=== PATIENT | female | born 1975 ===

== ENCOUNTER 2022-04-30 17:22 | Inpatient (IN) | payer MEDICARE, MEDICAID ==
[2022-05-01 00:42] LABS: Glucose,Whole Blood 139 mg/dL (70-110)
[2022-05-01] MEDS ORDERED: MAG HYDROX/AL HYDROX/SIMETH 30 ML CUP PO PRN (04:00)
[2022-05-01] MEDS ORDERED: ACETAMINOPHEN TAB 325 MG TAB PO PRN (04:00)
[2022-05-01 06:49] VITALS: TEMP 97.6
[2022-05-01 07:55] LABS: Glucose,Whole Blood 106 mg/dL (70-110)
[2022-05-01] MEDS ORDERED: DESVENLAFAXINE SUCCINATE 50 MG TAB.ER.24H PO SCH (09:00)
[2022-05-01] MEDS ORDERED: LINAGLIPTIN 5 MG TABLET PO SCH (09:00)
[2022-05-01] MEDS ORDERED: ASPIRIN 325 MG TAB PO SCH (09:00)
[2022-05-01] MEDS ORDERED: METOPROLOL SUCCINATE (ER) 25 MG TAB.ER.24H PO SCH (09:00)
[2022-05-01] MEDS ORDERED: NON FORMULARY DRUG (Armodafinil [Armodafinil] 250 MG Tablet) PO SCH (09:00)
[2022-05-01] MEDS ORDERED: MAGNESIUM HYDROXIDE 2,400 MG/10 ML CUP PO PRN (09:00)
[2022-05-01] MEDS ORDERED: busPIRone HCl 5 MG TAB PO SCH (09:00)
[2022-05-01] MEDS ORDERED: methocarbamoL 750 MG TAB PO PRN (09:00)
[2022-05-01] MEDS ORDERED: NICOTINE 14MG/24HR PATCH TRANSDERM SCH (09:00)
[2022-05-01] MEDS ORDERED: OXYBUTYNIN 10 MG TAB.ER.24 PO SCH (09:00)
[2022-05-01] MEDS ORDERED: lisinopriL 10 MG TAB PO SCH (09:00)
[2022-05-01] MEDS ORDERED: CLOPIDOGREL 75 MG TAB PO SCH (09:00)
[2022-05-01] MEDS: GABAPENTIN 300 MG CAP PO SCH ×2 (09:15→15:12)
[2022-05-01] MEDS: DOCUSATE 100 MG CAP PO SCH ×2 (09:15→19:57)
[2022-05-01] MEDS: metFORMIN 500 MG TAB PO SCH ×2 (09:15→19:56)
[2022-05-01] MEDS: HYDROcodone/APAP 10-325MG 1 EACH TAB PO SCH ×2 (09:18→20:00)
--- NOTE | 2022-05-01 09:50 | P.HP ---
Psychiatric H&P - . H&P Date: 05/01/22 History & Physical: IDENTIFYING DATA: The patient is a 46-year-old to focus female transferred from [facility] with a history of suicidal ideation HISTORY OF PRESENT ILLNESS: I reviewed the medical record and interviewed the patient. According to the information provided by Tasha Ham she presented initially with complaints of chest pain, vomiting and light headedness. During the medical evaluation she reported that her mother "kicked her out of the house a few days ago" and she had been off her medications since that time. The rn social services's assessment reported that during this time she lives with an ex- boyfriend with whom she had a past no contact order. She complained that she feels suicidal but was unable to articulate a plan. She stated that her mother "kicked me out of the house ... She slammed the door and told me to get out" last week because she had contact with her boyfriend. Her mother told her that she can speak with her boyfriend telephone but she does not want her to have contact with them otherwise. She alleged that she has a pack to order with the boyfriend. She lived with her boyfriend for "3 or 4 days" and during this time she did not have either her medical or psychiatric medications. She began to "feel dehydrated" and her boyfriend took her to the urgent care who in turn referred her to the emergency room. She talked about her provider obtaining a "DNA test" and starting her on Seroquel and Pristiq after this test. She acknowledged that she told the emergency room physician that she was having suicidal thoughts. Her primary focus during our interview was subjective anxiety and she requested, several times" "something" for anxiety. He requested that we discontinue BuSpar because she is taking the medication in the past and it "does not work." She also described subjective feelings of depression but gave ambiguous responses to questions about depressive symptoms such as anhedonia, anergy, guilt etc. She did not describe anxiety suggestive of panic attacks. She doesn't describe obsessions or compulsions. She denied experiencing auditory, visual or olfactory hallucinations, ideas reference, thought insertion, thought broadcasting or thought control. PAST PSYCHIATRIC HISTORY: She responded to the positive that she has had prior psychiatric hospitalizations but was unable to provide details. According to the information provided by the rn social services from Tasha Ham she has been admitted to [facility] at least 5 other psychiatric hospitals. Apparently all the admissions were the result of a suicide attempt by overdose of her medications. She receives mental health servides through [facility] with Dr. Mariee and her ed case manager is Maggie. 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 Her home medications include armodafinil 250 mg daily, aspirin 325 mg daily, clopidogrell 75 mg daily, Emgality 120 mg monthly, gabapentin 600 mg 3 times a day, Januvia 100 mg daily, Lipitor 40 mg daily, lisinopril 10 mg daily, metformin 1000mg twice a day, methocarbamol 750 mg 3 times a day when necessary, methylphenidate 5 mg 3 times a day, metoprolol 25 mg daily, morphine 30 mg every 12 hours, [place] 10 g-325 mg twice a day when necessary, oxybutynin 10 mg daily, ranolazine 500 mg twice a day, sulcralfate 1 g twice a day, Ventolin inhaler and Zofran 8 mg every 8 when necessary ALLERGIES: Lamictal, Tegretol SUBSTANCE USE HISTORY: She is smokes marijuana she denied a history of alcohol or other substance use. FAMILY PSYCHIATRIC/SUBSTANCE USE HISTORY: According to record there is no history of psychiatric or substance use issues. LEGAL HISTORY: None SOCIAL HISTORY: She is unemployed and receives Social Security disability. She uses lives with her mother. MENTAL STATUS EXAM: She presented as disheveled 46-year-old female who was minimally cooperative. She did not make eye contact but appeared to attend to the interview. She had no distinguishing features or prominent physical abnormalities. She had a flat facial expression. She is alert and oriented to person, place and time. She had psychomotor retardation. He will keep gait was slow and unsteady. Her speech was spontaneous with decreased rate, rhythm and volume. Affect was flat. She expresses wishes and suicidal ideation but denied homicidal ideation. She expresses feelings of hopelessness and helplessness. She ruminated about her medications and complains of subjective anxiety. She did not express ideas reference, paranoid ideation or delusions. Her thinking was concrete but her associations were coherent, logical and goal directed. She denied hallucinations did not appear to responding to internal stimuli. Global impression of intellect is average. She is aware of illness and need for treatment. STRENGTHS: Supportive family, strong supportive services through [facility], stable income, stable housing WEAKNESSES: Severe and multiple medical problems IMPRESSION: She is a 46-year-old female with multiple medical problems who presented to the unit on transfer from [facility]. She initially presented to the emergency room with complaints of chest pain, nausea and vomiting but during today's suspended express suicidal ideation. She is chronically and persistently mentally ill and receives services through [facility]. The change in her mental status and the suicidal ideation appears related family and social issues. She should be treated inpatient basis with combination of psychopharmacology and multimodal therapy. PRINCIPLE DIAGNOSIS: Suicidal ideation, bipolar disorder most recent episode depressed without psychotic features, narcolepsy, hemiplegia and hemiparesis secondary nontraumatic intracerebral hemorrhage affecting her left nondominant side, monoplegia (following stroke affecting left nondominant side RECOMMENDATION: Admitted to the psychiatric unit. Voluntary admission. Consult medicine initial physical exam and medical history. quarry worker to complete initial psychosocial assessment and coordinate discharge Continnue Pristiq 100 mg daily, armodafinil 250 mg daily and Seroquel 100 mg at bedtime. Ativan 1 mg by mouth every 6 hours when necessary for anxiety. Continue other outpatient medications as recommended by medicine product safety consultant. Encourage participation in therapeutic groups and activities. Evaluate clinical status response to treatment daily basis. Allergies Allergy/AdvReac Type Severity Reaction Status Date / Time carbamazepine [From Tegretol] Allergy Unknown Unverified 04/30/22 17:35 lamotrigine [From Lamictal] Allergy Unknown Unverified 04/30/22 17:35 latex Allergy Unknown Unverified 04/30/22 17:35 Vital Signs Temp 97.6 F 05/01/22 06:49 Pulse 60 05/01/22 06:49 Resp 20 05/01/22 00:43 BP 96/54 05/01/22 06:49 Pulse Ox FiO2 Intake & Output 04/30/22 05/01/22 05/01/22 18:59 06:59 18:59 Weight 73 kg 73 kg Laboratory Last Values POC Glucose (mg/dL) 106 mg/dL (70-110) 05/01/22 07:53 POC Glu Ed Case Manager ID Bernadette Manuel 05/01/22 07:53 05/01/22 08:12 05/01/22 09:43
[2022-05-01 12:49] LABS: Glucose,Whole Blood 92 mg/dL (70-110)
[2022-05-01] MEDS ORDERED: LORazepam 2 MG/ML INJ IM STA (20:08)
[2022-05-01] MEDS ORDERED: LORazepam 2 MG/ML INJ IM PRN (20:13)
[2022-05-01] MEDS ORDERED: LORazepam 1 MG TAB PO PRN (20:13)
[2022-05-01 20:15] VITALS: BP 143/101; PULSE 78; RESP 24
[2022-05-01 20:49] LABS: Glucose,Whole Blood 148 mg/dL (70-110)
[2022-05-01] MEDS ORDERED: QUEtiapine 100 MG TAB PO SCH (21:00)
[2022-05-01] MEDS ORDERED: ATORVASTATIN 40 MG TAB PO SCH (21:00)
[2022-05-01] MEDS ORDERED: traZODone HCL 50 MG TAB PO SCH (21:00)
--- NOTE | 2022-05-01 21:39 | CT ---
EXAMINATION TYPE: CT brain wo con for TPA DATE OF EXAM: 05/01/2022 COMPARISON: None HISTORY: stroke like symptoms CT DLP: mGycm Automated exposure control for dose reduction was used. Ventricles have normal size. There is no mass effect or midline shift. No sign of intracranial hemorr yamil. There is hypodensity in the inferior left cerebellar hemisphere that could be old infarct or en cephalomalacia. There is occipital craniotomy defect noted. There is normal aeration of the mastoid s inuses. IMPRESSION: No acute intracranial abnormality. Previous surgery. Left cerebellar encephalomalacia.
--- NOTE | 2022-05-01 21:40 | XR ---
EXAMINATION TYPE: XR chest 1V portable DATE OF EXAM: 05/01/2022 COMPARISON: NONE HISTORY: Weakness TECHNIQUE: Single view FINDINGS: The heart and mediastinum are normal. Lungs are clear. Diaphragm is normal. Bony thorax pina ears normal. IMPRESSION: Normal chest
--- NOTE | 2022-05-01 21:57 | CT ---
EXAMINATION TYPE: CODE STROKE: CTA head neck DATE OF EXAM: 05/01/2022 COMPARISON: None HISTORY: stroke like symptoms CT DLP: 1653.3 mGycm Automated exposure control for dose reduction was used. CONTRAST: Performed with IV Contrast, patient injected with 65 mL of Isovue 370. Images obtained from the aortic arch to the vertex of the brain with IV contrast. There are Three-D p ostprocessed images. There is normal branching pattern of the great vessels on the aortic arch. There is arterial flow in the subclavian arteries bilaterally. There is arterial flow in the common internal and external carot id arteries bilaterally. There is arterial flow in both vertebral arteries. There is fairly wide paul ncy of the carotid artery bifurcations. No evidence of carotid or vertebral artery aneurysm or dissec tion. No evidence of hemodynamic stenosis. There is arterial flow in the anterior middle and posterior cerebral arteries bilaterally. There is a rterial flow in the vertebrobasilar artery system. No evidence of intracranial aneurysm or neovascula rity. No evidence of intracranial hemodynamic arterial stenosis. There is occipital craniotomy defect . There is normal enhancement of the venous sinuses. IMPRESSION: Negative CT angiogram of the brain. Negative CT angiogram of the neck. There is noted osteotomy of the occipital bone and the C1 vertebra. There is oblique fracture which a ppears chronic through the anterior arch of C1 which could be due to destabilization from the surgery .
== END 2022-05-01 21:19 | disposition short-term general hospital (02) | DRG 885 ==
LOC: 3MHU 23:42
PROVIDERS: ADMIT Psychiatry & Neurology Psychiatry; ATTEND Psychiatry & Neurology Psychiatry
DX: F31.30 Bipolar disorder, current episode depressed, mild or moderate severity, unspecified (principal); R45.851 Suicidal ideations; I69.354 Hemiplegia and hemiparesis following cerebral infarction affecting left non-dominant side; F41.9 Anxiety disorder, unspecified; I10 Essential (primary) hypertension; J44.9 Chronic obstructive pulmonary disease, unspecified; Z79.82 Long term (current) use of aspirin; Z91.51 Personal history of suicidal behavior; Z28.82 Immunization not carried out because of caregiver refusal; G47.419 Narcolepsy without cataplexy; Z88.8 Allergy status to other drugs, medicaments and biological substances; Z91.040 Latex allergy status; Z56.0 Unemployment, unspecified; R26.81 Unsteadiness on feet; E11.9 Type 2 diabetes mellitus without complications; G47.33 Obstructive sleep apnea (adult) (pediatric); E78.5 Hyperlipidemia, unspecified; Z79.899 Other long term (current) drug therapy
CPT/HCPCS: 70450; 70496; 70498; 71045; 93005

== ENCOUNTER 2022-05-01 21:16 | Inpatient (IN) | payer MEDICARE, OTHER ==
[2022-05-01 23:18] LABS: Basophils # (A) 0.1 k/uL (0-0.2); Basophils % (A) 1 %; Eosinophils # (A) 0.4 k/uL (0-0.7); Eosinophils % (A) 5 %; HCT 43.6 % (34.0-46.0); HGB 14.2 gm/dL (11.4-16.0); Lymphocytes # (A) 3.1 k/uL (1.0-4.8); Lymphocytes % (A) 40 %; MCH 33.7 pg (25.0-35.0); MCHC 32.5 g/dL (31.0-37.0); MCV 103.6 fL (80.0-100.0); Macrocytosis Slight; Mean Platelet Volume 7.8; Monocytes # (A) 0.5 k/uL (0-1.0); Monocytes % (A) 6 %; Neutrophils # (A) 3.4 k/uL (1.3-7.7); Neutrophils % (A) 45 %; Platelet Count 258 k/uL (150-450); RBC 4.21 m/uL (3.80-5.40); RDW 11.9 % (11.5-15.5); WBC 7.6 k/uL (3.8-10.6)
[2022-05-01 23:29] LABS: INR 0.9 (<1.2); Partial Thromboplastin Time 25.9 sec (22.0-30.0)
[2022-05-01 23:36] LABS: ALT 26 U/L (4-34); AST 26 U/L (14-36); African American GFR (CKD) >90 (>60 ml/min/1.73 sqM); Albumin 3.7 g/dL (3.5-5.0); Alkaline Phosphatase 94 U/L (38-126); Anion Gap 7 mmol/L; Blood Urea Nitrogen 15 mg/dL (7-17); Calcium 8.9 mg/dL (8.4-10.2); Carbon Dioxide 25 mmol/L (22-30); Chloride 103 mmol/L (98-107); Glucose 105 mg/dL (74-99); Non-African American GFR(CKD) >90 (>60 ml/min/1.73 sqM); Potassium 3.9 mmol/L (3.5-5.1); Sodium 135 mmol/L (137-145); Total Bilirubin 0.1 mg/dL (0.2-1.3)
--- NOTE | 2022-05-02 00:44 | P.HPIM ---
History of Present Illness H&P Date: 05/01/22 The patient is a 45-year-old female with a PMH of type II DM, hypertension, history of CVA (12/2021 with no residual deficits as per patient), asthma, and depression who was transferred from [facility] where she had been admitted for depression and suicidal ideation. The patient was in the mental health unit being treated for depression when she reports suddenly developing chest discomfort, shortness of breath, left-sided weakness, numbness, and tingling. A team was initially activated 20:04 for the above complaints. The patient was seen at the bedside. She reports that she recently just got some bad news that her fianc is breaking up with her, prompting sudden onset of worsening anxiety and the above symptoms. She reports that after her CVA in December, that she had no further left-sided weakness and had returned to full strength. She reports walking with a cane only for her balance. Patient denied experiencing speech impairment. Code stroke was immediately activated. CT angiogram of head and neck was performed and was unremarkable with CT brain also unremarkable. Chest x-ray was also unremarkable. Case was discussed with neuro wheel of fortune dealer national sales representative Dr Levine who recommended no tPA. The patient's NIH score was 5. The patient reported that the chest discomfort was 7 out of 10, nonradiating, throbbing, with mild shortness of breath. Denied nausea, vomiting, diaphoresis. Also denied fever, chills, cough, abdominal pain, diarrhea. EKG was obtained at the bedside during the initial encounter which revealed sinus rhythm with no ST/T-wave changes noted as reviewed by me. Laboratory evaluation was ordered and was reviewed and was remarkable for troponin less than 0.012, MCV 103.6, and sodium 135. Review of systems: Pertinent positives and negatives as discussed in HPI, a complete review of systems was performed and all other systems are negative. Physical examination: General: non toxic, no distress, appears at stated age, normal weight Derm: no unusual rashes/lesions, warm Head: atraumatic, normocephalic, symmetric Eyes: EOMI, no lid lag, anicteric sclera, pupils equal round reactive to light ENT: Nose and ears atraumatic Neck: No cervical lymphadenopathy, trachea midline, supple Mouth: no lip lesion, mucus membranes moist Cardiovascular: S1S2 reg, no murmur, positive dorsalis pedis pulse bilateral, no edema Lungs: CTA bilateral, no rhonchi, no rales, no accessory muscle use Abdominal: soft, nontender to palpation, no guarding Ext: muscle strength 3 out of 5 of left upper and lower extremities, strength 5 out of 5 on the right side, no gross muscle atrophy, no contractures, left pronator drift Neuro: CN II-XI grossly intact, no gross focal neuro deficits, no facial asymmetry noted Psych: Alert, oriented, appropriate affect Assessment/plan CVA versus TIA -CT angiogram and CT brain unremarkable -Continue with neuro checks -Continue with aspirin, plavix, statin -Echocardiogram -Cardiac monitoring -PT and speech consults -Neurology consult Chest pain, suspected panic attack -Continue cardiac monitoring -Trend troponin Depression with suicidal ideation -Continue with sitter for suicide precaution -Psychiatric consult Chronic conditions: Type II DM, hypertension, asthma, depression -Insulin sliding scale and blood glucose monitoring -Continue home meds DVT prophylaxis -Heparin subcu The patient is admitted with an anticipated greater than 2 midnight stay for evaluation of TIA CODE STATUS: Full Code Discussed with: Patient Anticipated discharge date: 2-[address]: Home Past Medical History Past Medical History: Coronary Artery Disease (CAD), COPD, CVA/TIA, Diabetes Mellitus, Deep Vein Thrombosis (DVT), Hyperlipidemia, Hypertension, Sleep Apnea/CPAP/BIPAP, Vascular Disorder Additional Past Medical History / Comment(s): Pt does not use a C-pap at home. MTFHR gene clotting disorder. L subclavian stent History of Any Multi-Drug Resistant Organisms: None Reported Past Surgical History: Heart Catheterization With Stent Past Anesthesia/Blood Transfusion Reactions: No Reported Reaction Date of Last Stent Placement:: unknown Past Psychological History: Anxiety, Bipolar, Depression, PTSD Smoking Status: Current every day smoker Past Alcohol Use History: None Reported - Past Family History Mother Family Medical History: Hyperlipidemia Medications and Allergies Home Medications Medication Instructions Recorded Confirmed Type ARIPiprazole 15 mg PO DAILY 05/01/22 05/01/22 History Albuterol Inhaler [Ventolin Hfa 1 puff INHALATION Q6HR PRN 05/01/22 05/01/22 History Inhaler] Aspirin 325 mg PO DAILY 05/01/22 05/01/22 History Atorvastatin [Lipitor] 40 mg PO HS 05/01/22 05/01/22 History Benztropine Mesylate [Cogentin] 2 mg PO DAILY 05/01/22 05/01/22 History Clopidogrel [Plavix] 75 mg PO DAILY 05/01/22 05/01/22 History Docusate Sodium [Dok] 100 mg PO BID 05/01/22 05/01/22 History Gabapentin 600 mg PO TID 05/01/22 05/01/22 History Galcanezumab-Gnlm [Emgality Pen] 120 mg SQ QMONTHLY 05/01/22 05/01/22 History HYDROcodone/APAP 10-325MG [[place] 1 tab PO BID PRN 05/01/22 05/01/22 History 10-325] Methylphenidate HCl 5 mg PO TID 05/01/22 05/01/22 History Metoprolol Succinate [Metoprolol 25 mg PO DAILY 05/01/22 05/01/22 History Succinate ER] Morphine Sulfate [Morphine Sulfate 30 mg PO Q12HR PRN 05/01/22 05/01/22 History ER] Oxybutynin Chloride [Ditropan XL] 10 mg PO DAILY 05/01/22 05/01/22 History Ranolazine [Ranexa] 500 mg PO BID 05/01/22 05/01/22 History Sucralfate [Carafate] 1 gm PO BID 05/01/22 05/01/22 History armodafiniL [Armodafinil] 250 mg PO DAILY 05/01/22 05/01/22 History busPIRone HCL 15 mg PO TID 05/01/22 05/01/22 History lisinopriL [Zestril] 10 mg PO DAILY 05/01/22 05/01/22 History metFORMIN HCL 1,000 mg PO BID 05/01/22 05/01/22 History methocarbamoL [Methocarbamol] 750 mg PO TID PRN 05/01/22 05/01/22 History ondansetron HCL [Zofran] 8 mg PO Q8HR PRN 05/01/22 05/01/22 History sitaGLIPtin [Januvia] 100 mg PO DAILY 05/01/22 05/01/22 History traZODone HCL [Desyrel] 50 mg PO HS 05/01/22 05/01/22 History Allergies Allergy/AdvReac Type Severity Reaction Status Date / Time carbamazepine [From Tegretol] Allergy Unknown Unverified 05/01/22 21:10 lamotrigine [From Lamictal] Allergy Unknown Unverified 05/01/22 21:10 latex Allergy Unknown Unverified 05/01/22 21:10 Physical Exam Vitals: Vital Signs Temp Pulse Resp BP Pulse Ox 05/02/22 00:00 66 18 108/71 92 L 05/01/22 22:01 97.9 F 66 18 99/63 93 L Intake and Output 05/01/22 05/01/22 05/02/22 14:59 22:59 06:59 Other: Weight 73.936 kg Results CBC & Chem 7: 05/01/22 23:02 05/01/22 23:02 Labs: Abnormal Lab Results - Last 24 Hours (Table) 05/01/22 05/01/22 Range/Units 23:02 23:02 MCV 103.6 H (80.0-100.0) fL Sodium 135 L (137-145) mmol/L Glucose 105 H (74-99) mg/dL Total Bilirubin 0.1 L (0.2-1.3) mg/dL Total Protein 6.0 L (6.3-8.2) g/dL Thrombosis Risk Factor Assmnt - Choose All That Apply Any of the Below Risk Factors Present?: Yes Each Factor Represents 1 point: Age 41-60 years Thrombosis Risk Factor Assessment Total Risk Factor Score: 1 Thrombosis Risk Factor Assessment Level: Low Risk
[2022-05-02] MEDS ORDERED: methocarbamoL 750 MG TAB PO PRN (02:00)
[2022-05-02] MEDS: ATORVASTATIN 80 MG TAB PO SCH ×2 (02:55→19:50)
[2022-05-02 06:18] LABS: Glucose,Whole Blood 91 mg/dL (70-110)
[2022-05-02] MEDS: INSULIN ASPART (NovoLOG) 100 UNIT/ML VIAL SQ SCH ×4 (06:25→20:19)
[2022-05-02] MEDS: ASPIRIN 325 MG TAB PO SCH (08:25)
[2022-05-02] MEDS: lisinopriL 10 MG TAB PO SCH (08:25)
[2022-05-02] MEDS: CLOPIDOGREL 75 MG TAB PO SCH (08:25)
[2022-05-02] MEDS: METOPROLOL SUCCINATE (ER) 25 MG TAB.ER.24H PO SCH (08:25)
[2022-05-02] MEDS: HEPARIN SODIUM,PORCINE/PF 5,000 UNIT/0.5 ML SYRINGE SQ SCH ×2 (08:26→15:15)
--- NOTE | 2022-05-02 10:16 | P.CNNES ---
History of Present Illness Consult date: 05/02/22 Requesting physician: Joel Lara Reason for Consult: TIA/CVA History of Present Illness: This is a 46-year-old with history of reported stroke on December 2021 without any residual deficit (according to patient), Chiari-Malformation s/p surgical resection, diabetes mellitus type 2, hypertension, asthma, depression, tobacco use who was transferred from [facility] to our mental health department for depression and suicidal ideation. It seems that the patient recently just got some bad news that her fianc is breaking up with her pontine sudden onset worsening anxiety, depression and other psychiatric issues. While there patient reported sudden development chest pain, shortness of breath, left-sided weakness and numbness and tingling on 05/01/2022. As a result stroke code was activated at 20:04. NIH stroke scale was a 5 according to the notes. Patient had a CT of the head as well as CT angiography of the head and neck which is reported as negative. The case was discussed with the stroke attending (Dr. Swan) and he recommended no IV TPA. I assume that the patient did not get IV TPA because it was felt it was due to her underlying psychiatric issues and the risk outweighed the benefit. I spoke with the patient's nurse and she stated that the patient exam is inconsistent since when she examined the patient still presented with left-sided weakness but when the she's not being examined she's able to lift up by the left upper and lower extremity without any deficits or difficulties. Patient is on multiple home medication and some consist of aspirin 325 daily, Plavix 75 mg daily, Lipitor 40 mg daily at bedtime. Of note patient stated that she had a stroke in 2021 and had left-sided weakness and she presented to [facility]. Her symptoms is resolved. She follows up with her neurologist Dr. Yung. I personally reviewed the CT of the head and I agree there is no acute subacute ischemia and there is no intraparenchymal hemorrhage. I reviewed her labs. Also of note the CT angiography is reported as there is noted osteotomy of the occipital bone C1 vertebral. There is a oblique fracture which appears chronic to the anterior arch of C1 which could be due to the stabilization from the surgery Review of Systems Review of system: The 12 point system was reviewed and apparent positive and negative per HPI. Past Medical History Past Medical History: Coronary Artery Disease (CAD), COPD, CVA/TIA, Diabetes Mellitus, Deep Vein Thrombosis (DVT), Hyperlipidemia, Hypertension, Sleep Apnea/CPAP/BIPAP, Vascular Disorder Additional Past Medical History / Comment(s): Pt does not use a C-pap at home. MTFHR gene clotting disorder. L subclavian stent History of Any Multi-Drug Resistant Organisms: None Reported Past Surgical History: Heart Catheterization With Stent Past Anesthesia/Blood Transfusion Reactions: No Reported Reaction Date of Last Stent Placement:: unknown Past Psychological History: Anxiety, Bipolar, Depression, PTSD Smoking Status: Current every day smoker Past Alcohol Use History: None Reported - Past Family History Mother Family Medical History: Hyperlipidemia Medications and Allergies Home Medications Medication Instructions Recorded Confirmed Type Clopidogrel [Plavix] 75 mg PO DAILY 05/01/22 05/01/22 History Metoprolol Succinate [Metoprolol 25 mg PO DAILY 05/01/22 05/01/22 History Succinate ER] Oxybutynin Chloride [Ditropan XL] 10 mg PO DAILY 05/01/22 05/01/22 History Ranolazine [Ranexa] 500 mg PO BID 05/01/22 05/01/22 History Sucralfate [Carafate] 1 gm PO BID 05/01/22 05/01/22 History busPIRone HCL 15 mg PO TID 05/01/22 05/01/22 History lisinopriL [Zestril] 10 mg PO DAILY 05/01/22 05/01/22 History sitaGLIPtin [Januvia] 100 mg PO DAILY 05/01/22 05/01/22 History traZODone HCL [Desyrel] 50 mg PO HS 05/01/22 05/01/22 History ARIPiprazole [Abilify] 20 mg PO HS 05/02/22 05/02/22 History Desvenlafaxine Succinate [Pristiq] See Taper PO DAILY 05/02/22 05/02/22 History Empagliflozin [Jardiance] 25 mg PO DAILY 05/02/22 05/02/22 History Levothyroxine Sodium [Synthroid] 50 mcg PO DAILY@0630 30 Days #30 05/02/22 Rx tab Ondansetron Odt [Zofran ODT] 8 mg PO Q8HR PRN 05/02/22 05/02/22 History QUEtiapine [SEROquel] See Taper PO DAILY 05/02/22 05/02/22 History Rosuvastatin Calcium [Crestor] 40 mg PO DAILY 05/02/22 05/02/22 History hydroCHLOROthiazide [Hydrodiuril] 12.5 mg PO DAILY 05/02/22 05/02/22 History metFORMIN HCL [Glucophage] 1,000 mg PO BID 05/02/22 05/02/22 History Allergies Allergy/AdvReac Type Severity Reaction Status Date / Time carbamazepine [From Tegretol] Allergy Unknown Unverified 05/01/22 21:10 lamotrigine [From Lamictal] Allergy Unknown Unverified 05/01/22 21:10 latex Allergy Unknown Unverified 05/01/22 21:10 Physical Examination - Vital Signs Vital Signs: Vital Signs Temp Pulse Resp BP Pulse Ox 05/02/22 08:01 97.8 F 60 18 125/74 96 05/02/22 03:45 98 F 60 18 112/72 96 05/02/22 02:00 18 05/02/22 00:00 66 18 108/71 92 L 05/01/22 23:00 18 05/01/22 22:01 97.9 F 66 18 99/63 93 L Intake and Output 05/01/22 05/02/22 05/02/22 22:59 06:59 14:59 Intake Total 100 Balance 100 Intake: Oral 100 Other: # Voids 1 # Bowel Movements 1 Weight 73.936 kg GENERAL: The patient is lying in bed and is not in acute distress. CHEST: The heart rate is regular rate rhythm. No murmurs to auscultation. No carotid bruit bilaterally. LUNG: Clear to auscultation bilaterally no wheezing noted throughout. Not labored breathing. ABDOMEN/GI: Bowel sounds present in all 4 quadrants. No tenderness to palpation throughout. NEUROLOGICAL: Higher mental function: The patient is awake, alert, oriented to self, place and time. Patient is following commands. No aphasia and no neglect. Cranial nerves: The pupils are round, equal and reactive to light and accommodation. Visual nobles are full to confrontation throughout. Extraocular movement is intact no nystagmus is noted. Facial sensation is normal to touch throughout. The facial strength is normal throughout. Hearing is normal bilaterally to hand rub. Tongue is midline and moved [id number] without any difficulty. No dysarthria is noted. Shoulder shrug is normal bilaterally. Motor: The strength is patient has inconsistent strength on left side. Initially is having difficulty lifting left side but with motivation she is able to do so. Right side is normal. Normal tone and bulk. Cerebellum: Normal finger to nose heel to connors bilaterally. Sensation: States left side is decreased to touch. Reflexes (right/left): 2+ throughout. Plantars are downgoing bilaterally. Results - Laboratory Findings CBC and BMP: 05/01/22 23:02 05/01/22 23:02 Abnormal Lab Findings: Abnormal Labs 05/01/22 05/01/22 23:02 23:02 MCV 103.6 H Sodium 135 L Glucose 105 H Total Bilirubin 0.1 L Total Protein 6.0 L Assessment and Plan Assessment: * Acute left-sided weakness and paresthesia (exam inconsistent and improves with motivation). Does not seem like stroke and her symptoms seems more functional likely due to underlying psychiatric issues (depression, suicidal ideation. Her boyfriend is breaking up with her). Seems more conversion. CT head and CTA are unremarkable. * Acute suicidal ideation with depression * Reported history of stroke without residual deficits in fabric 2021 according to the patient. Had left sided weakness that resolved * Diabetes mellitus type 2 * Hypertension * Asthma * Tobacco use Plan: She is currently on aspirin 325mg daily and Plavix 75 mg daily her home medications. Recommend to follow-up with her neurologist of modification of antiplatelets. Recommend decreasing Lipitor from 80 to 40 daily at bedtime. 2-D echo, lipid panel is ordered and pending PT OT and BUSINESS DEVELOPMENT SALES EXECUTIVE are consulted Psychiatry team is consulted I ordered TSH with free T4 otherwise no other additional workup is needed. If uncontrolled we'll defer the management to the primary team. Psychiatry team is consulted Patient is counseled on tobacco cessation. For DVT prophylaxis the patient is on subcu heparin 5000 units every 8 hours. Recommend the patient to follow-up with a neurologist (Dr. Yung) as well as psychiatrist as an outpatient. As stated above otherwise no additional workup is needed and if the workup is negative patient is cleared for discharge from a neurological perspective. The plan is discussed with patient and primary team. Thank you for the consultation. Casimiro Smith M.D. Neuro-hospitalist Time with Patient: Greater than 30
[2022-05-02 11:50] LABS: Glucose,Whole Blood 108 mg/dL (70-110)
[2022-05-02 12:09] LABS: T4, Free (Free Thyroxine) 0.74 ng/dL (0.78-2.19)
--- NOTE | 2022-05-02 12:57 | P.DS ---
Providers Date of admission: 05/01/22 21:37 Expected date of discharge: 05/02/22 Attending physician: Joel Lara MD Consults: 05/01/22 21:58 Consult Physician Stat Consulting Provider: Psychiatry - [facility] Psychiatry Consult Reason/Comments: depression, suicidal ideation Do you want consulting provider notified?: Yes, Notify in am 05/02/22 00:41 Consult Physician Urgent Consulting Provider: Casimiro Smith Consult Reason/Comments: TIA/CVA Do you want consulting provider notified?: Yes Primary care physician: Stated None Hospital Course: Discharge Diagnosis: Hospital Course: The patient is a 45-year-old female with a past medical history of type II DM, hypertension, history of CVA (12/2021 with no residual deficits as per patient), asthma, chronic back pain, and depression. She was transferred from [facility] to our inpatient mental health unit for depression and suicidal fara ations. While in our mental health unit undergoing treatment for her depression, patient reports that she suddenly developed chest discomfort, shortness of breath/difficulty catching her breath, and left-sided numbness, weakness, and tingling. Rapid Response team was activated and pt was evaluted at bedside resulting in immediate activation of code stroke. The patient's initial NIH score was 5. She underwent a CT brain which was negative for acute intercranial process, CTA head and neck was also performed resulting negative for acute process. EKG revealed sinus rhythm with no reported T-wave or ST abnormalities. Chest x-ray negative. Case was then reportedly discussed with neuro m1a1 tank crewman software applications specialist Dr Levine who recommended no tPA. It was reported that just prior to experiencing the sudden onset chest discomfort, shortness of breath and left-sided numbness, tingling, and weakness; the patient reports that she received some very bad news that her fianc was breaking up with her. Leigha ent states this bad news resulted in sudden onset of worsening anxiety shortly followed by above symptoms. when she reports suddenly developing chest discomfort, shortness of breath, left-sided weakness, numbness, and tingling. A team was initially activated 20:04 for the above complaints. The patient was seen at the bedside. She reports that she recently just got some bad news that her fianc is breaking up with her, prompting sudden onset of worsening anxiety and the above symptoms. She reports that after her CVA in December, that she had no further left-sided weakness and had returned to full strength. She reports walking with a cane only for her balance. Patient denied experiencing speech impairment. Code stroke was immediately activated. CT angiogram of head and neck was performed and was unremarkable with CT brain also unremarkable. Chest x-ray was also unremarkable. Case was discussed with neuro m1a1 tank crewman software applications specialist Dr Levine who recommended no tPA. The patient's NIH score was 5. The patient reported that the chest discomfort was 7 out of 10, nonradiating, throbbing, with mild shortness of breath. Denied nausea, vomiting, diaphoresis. Also denied fever, chills, cough, abdominal pain, diarrhea. EKG was obtained at the bedside during the initial encounter which revealed sinus rhythm with no ST/T-wave changes noted as reviewed by me. Laboratory evaluation was ordered and was reviewed and was remarkable for troponin less than 0.012, MCV 103.6, and sodium 135. Review of systems: Pertinent positives and negatives as discussed in HPI, a complete review of sys tems was performed and all other systems are negative. Physical examination: General: non toxic, no distress, appears at stated age, normal weight Derm: no unusual rashes/lesions, warm Head: atraumatic, normocephalic, symmetric Eyes: EOMI, no lid lag, anicteric sclera, pupils equal round reactive to light ENT: Nose and ears atraumatic Neck: No cervical lymphadenopathy, trachea midline, supple Mouth: no lip lesion, mucus membranes moist Cardiovascular: S1S2 reg, no murmur, positive dorsalis pedis pulse bilateral, no edema Lungs: CTA bilateral, no rhonchi, no rales, no accessory muscle use Abdominal: soft, nontender to palpation, no guarding Ext: muscle strength 3 out of 5 of left upper and lower extremities, strength 5 out of 5 on the right side, no gross muscle atrophy, no contractures, left pronator drift Neuro: CN II-XI grossly intact, no gross focal neuro deficits, no facial asymmetry noted Psych: Alert, oriented, appropriate affect Assessment/plan CVA versus TIA -CT angiogram and CT brain unremarkable -Continue with neuro checks -Continue with aspirin, plavix, statin -Echocardiogram -Cardiac monitoring -PT and speech consults -Neurology consult Chest pain, suspected panic attack -Continue cardiac monitoring -Trend troponin Depression with suicidal ideation -Continue with sitter for suicide precaution -Psychiatric consult Chronic conditions: Type II DM, hypertension, asthma, depression -Insulin sliding scale and blood glucose monitoring -Continue home meds Patient seen and examined at bedside.[] Vital signs reviewed and stable. General: Nontoxic, no distress and appears stated age. Derm: Skin warm and dry, normal coloration for ethnicity. Head: Atraumatic, normocephalic and symmetric. Eyes: EOMs intact, no lid lag, and anicteric sclera Mouth: no lip lesions, mucus membranes moist Cardiovascular: regular rate and rhythm with normal S1S2, no murmur, positive posterior tibial pulses bilaterally, and cap refill < 2 seconds. Lungs: Respirations even, regular, and unlabored on room air. Lungs CTA bilaterally, no rhonchi, no rales, no wheezing, and no accessory muscle usage. Abdominal: soft, nontender to palpation, no guarding, no appreciable org anomegaly Ext: ROM intact. No gross muscle atrophy, no edema, no contractures Neuro: Speech clear, face symmetrical and CN II-XII grossly intact with no noted focal neuro deficits Psych: Alert and oriented to person, place, time, and situation. Appropriate and pleasant affect. A total of [ ] minutes of time were spent preparing this complex discharge summary. Pt was discharged on [ ] at [ ] Patient Condition at Discharge: Stable Plan - Discharge Summary New Discharge Prescriptions: New Levothyroxine Sodium [Synthroid] 50 mcg PO DAILY 30 Days #30 tab Continue metFORMIN HCL 1,000 mg PO BID busPIRone HCL 15 mg PO TID Sucralfate [Carafate] 1 gm PO BID Oxybutynin Chloride [Ditropan XL] 10 mg PO DAILY Methylphenidate HCl 5 mg PO TID Gabapentin 600 mg PO TID Docusate Sodium [Dok] 100 mg PO BID Aspirin 325 mg PO DAILY Albuterol Inhaler [Ventolin Hfa Inhaler] 1 puff INHALATION Q6HR PRN PRN Reason: Dyspnea ARIPiprazole 15 mg PO DAILY ondansetron HCL [Zofran] 8 mg PO Q8HR PRN PRN Reason: Nausea And Vomiting traZODone HCL [Desyrel] 50 mg PO HS sitaGLIPtin [Januvia] 100 mg PO DAILY methocarbamoL [Methocarbamol] 750 mg PO TID PRN PRN Reason: Pain lisinopriL [Zestril] 10 mg PO DAILY armodafiniL [Armodafinil] 250 mg PO DAILY Ranolazine [Ranexa] 500 mg PO BID Morphine Sulfate [Morphine Sulfate ER] 30 mg PO Q12HR PRN PRN Reason: Pain Metoprolol Succinate [Metoprolol Succinate ER] 25 mg PO DAILY HYDROcodone/APAP 10-325MG [[place] 10-325] 1 tab PO BID PRN PRN Reason: Pain Galcanezumab-Gnlm [Emgality Pen] 120 mg SQ QMONTHLY Clopidogrel [Plavix] 75 mg PO DAILY Benztropine Mesylate [Cogentin] 2 mg PO DAILY Atorvastatin [Lipitor] 40 mg PO HS Discharge Medication List ARIPiprazole 15 mg PO DAILY 05/01/22 [History] Albuterol Inhaler [Ventolin Hfa Inhaler] 1 puff INHALATION Q6HR PRN 05/01/22 [History] Aspirin 325 mg PO DAILY 05/01/22 [History] Atorvastatin [Lipitor] 40 mg PO HS 05/01/22 [History] Benztropine Mesylate [Cogentin] 2 mg PO DAILY 05/01/22 [History] Clopidogrel [Plavix] 75 mg PO DAILY 05/01/22 [History] Docusate Sodium [Dok] 100 mg PO BID 05/01/22 [History] Gabapentin 600 mg PO TID 05/01/22 [History] Galcanezumab-Gnlm [Emgality Pen] 120 mg SQ QMONTHLY 05/01/22 [History] HYDROcodone/APAP 10-325MG [[place] 10-325] 1 tab PO BID PRN 05/01/22 [History] Methylphenidate HCl 5 mg PO TID 05/01/22 [History] Metoprolol Succinate [Metoprolol Succinate ER] 25 mg PO DAILY 05/01/22 [History] Morphine Sulfate [Morphine Sulfate ER] 30 mg PO Q12HR PRN 05/01/22 [History] Oxybutynin Chloride [Ditropan XL] 10 mg PO DAILY 05/01/22 [History] Ranolazine [Ranexa] 500 mg PO BID 05/01/22 [History] Sucralfate [Carafate] 1 gm PO BID 05/01/22 [History] armodafiniL [Armodafinil] 250 mg PO DAILY 05/01/22 [History] busPIRone HCL 15 mg PO TID 05/01/22 [History] lisinopriL [Zestril] 10 mg PO DAILY 05/01/22 [History] metFORMIN HCL 1,000 mg PO BID 05/01/22 [History] methocarbamoL [Methocarbamol] 750 mg PO TID PRN 05/01/22 [History] ondansetron HCL [Zofran] 8 mg PO Q8HR PRN 05/01/22 [History] sitaGLIPtin [Januvia] 100 mg PO DAILY 05/01/22 [History] traZODone HCL [Desyrel] 50 mg PO HS 05/01/22 [History] Levothyroxine Sodium [Synthroid] 50 mcg PO DAILY 30 Days #30 tab 05/02/22 [Rx] Activity/Diet/Wound Care/Special Instructions: Patient is clear for discharge back to inpatient mental health unit. Patient was started on Synthroid secondary to low TSH and low free T4 indicating hypothyroidism. Patient will need to follow up outpatient with her primary care provider for repeat thyroid function levels and continued medication manag ement. Patient is on a significant amount of home medications including multiple controlled substances. Recommend discontinuation of methylphenidate, armodafinil, [place], and morphine sulfate...Will leave up to the discretion of patient's PCP and psychiatry team. Discharge Disposition: TRANSFER TO PSYCH HOSP/UNIT
[2022-05-02] MEDS: HYDROcodone/APAP 10-325MG 1 EACH TAB PO PRN ×2 (13:01→17:02)
--- NOTE | 2022-05-02 13:43 | CA ---
Transthoracic Echo Report Name: Isaura Pavon Age: 46 Gender: F : 1975 Exam Date: 05/02/2022 07:54 Exam Location: [facility] Ht (in): 67 Wt (lb): 163 Ordering Physician: Joel Lara MD Attending/Referring Phys: Home Child Care Provider Maria Teresa Azevedo RDCS Procedure CPT: Indications: tia Cardiac Hx: Technical Quality: Good Contrast 1: Total Dose (mL): Contrast 2: Total Dose (mL): MEASUREMENTS (Male / Female) Normal Values 2D ECHO LV Diastolic Diameter PLAX 4.5 cm 4.2 - 5.9 / 3.9 - 5.3 cm LV Systolic Diameter PLAX 3.2 cm IVS Diastolic Thickness 0.8 cm 0.6 - 1.0 / 0.6 - 0.9 cm LVPW Diastolic Thickness 1.4 cm 0.6 - 1.0 / 0.6 - 0.9 cm LV Relative Wall Thickness 0.5 RV Internal Dim ED PLAX 2.7 cm LA Systolic Diameter LX 3.0 cm 3.0 - 4.0 / 2.7 - 3.8 cm LA Volume 33.7 cm??? 18 - 58 / 22 - 52 cm??? M-MODE Aortic Root Diameter MM 2.5 cm LA Systolic Diameter MM 3.4 cm LA Ao Ratio MM 1.4 MV E Point Septal Separation 1.1 cm AV Cusp Separation MM 1.8 cm DOPPLER MV Area PHT 3.9 cm??? Mitral E Point Velocity 54.6 cm/s Mitral A Point Velocity 74.5 cm/s Mitral E to A Ratio 0.7 MV Deceleration Time 196.9 ms MV E' Velocity 10.2 cm/s Mitral E to MV E' Ratio 5.4 FINDINGS Left Ventricle Normal left ventricular size, wall thickness, systolic function with no obvious regional wall motion abnormalities. The ejection fraction is visually estimated at 50-55 %. Right Ventricle The right ventricle is normal in size and function. Right Atrium The right atrium is normal in size. Left Atrium The left atrium is normal in size. Mitral Valve Structurally normal mitral valve without significant stenosis or prolapse. There is mild mitral regurgitation. Aortic Valve Structurally normal aortic valve without significant sclerosis or stenosis. There is no aortic regurgitation. Tricuspid Valve Structurally normal tricuspid valve without significant stenosis. Pulmonary artery systolic pressure is normal. Pulmonic Valve Structurally normal pulmonic valve without significant stenosis. There is no pulmonic regurgitation. Pericardium Normal pericardium without effusion. Aorta Normal aortic root dimension. CONCLUSIONS Normal LV size and systolic function Previewed by: Dr. Vick Nieves MD (Electronically Signed) Final Date: 02 May 2022 13:42
--- NOTE | 2022-05-02 14:06 | P.CN ---
Psychiatric Consult - . Consult date: 05/02/22 Consult:: 05/02/22 14:06 IDENTIFYING DATA: This patient is a 46-year-old, , female who presented to the hospital from [facility] for suicidal ideation HISTORY OF PRESENT ILLNESS: The patient presented to the hospital on 05/01/2022, transferred from [facility] for suicidal ideation. However the patient reported sudden chest discomfort, left-sided weakness, and SOB and an A team was activated. The patient was subsquently admitted to the medical floor. The patient has been evaluated by neurology and the medical team as a code stroke was immediately activated. CT angiogram and CT of the brain were unremarkable. Neurological workup was unremarkable as well. Strong suspicion for conversion with an exam that was inconsistent. Psychiatry was consulted to continue to evaluate and manage symptoms of depression and suicidal ideation. Upon evaluation on the medical floor, the patient is vehemently denying any suicidal or homicidal ideation, intention, and/or plan. She states that she was only suicidal because she was in an argument with her fiancee. She states she has plenty of reasons to live, especially for her child. She reports no significant symptoms of depression at this time. She denies any issues regarding her sleep, motivation, hygiene and grooming, hopelessness, helplessness, or anhedonia. She is reporting no significant symptoms of bipolar disorder. She denies any periods of excessive energy, grandiosity, mood swings. She denies any auditory or visual hallucinations. The patient reports that she follows up with her ACT team in [facility]. She reports that she has been stable on her medications but only felt suicidal during her last hospitalization after an argument with her fianc. She does express some concerns about safety around her fianc however states that she would be staying with her parents. She also reports that police were made aware of how her fianc can become violent. PAST PSYCHIATRIC HISTORY: Patient has a history of depression. The patient's home psychiatric medications include trazodone, BuSpar, Ritalin, gabapentin, and Abilify. Reports 4-5 inpatient psychiatric hospitalizations. She follows with the ACT team in [facility]. She reports multiple attempts at suicide in the past the last time being more than 5 years ago. PAST MEDICAL HISTORY: Past Medical History: Coronary Artery Disease (CAD), COPD, CVA/TIA, Diabetes Mellitus, Deep Vein Thrombosis (DVT), Hyperlipidemia, Hypertension, Sleep Apnea/CPAP/BIPAP, Vascular Disorder Additional Past Medical History / Comment(s): Pt does not use a C-pap at home. MTFHR gene clotting disorder. L subclavian stent History of Any Multi-Drug Resistant Organisms: None Reported Past Surgical History: Heart Catheterization With Stent Past Anesthesia/Blood Transfusion Reactions: No Reported Reaction Date of Last Stent Placement:: unknown Past Psychological History: Anxiety, Bipolar, Depression, PTSD Smoking Status: Current every day smoker Past Alcohol Use History: None Reported ALLERGIES: Carbamazepine, lamotrigine, latex CHEMICAL DEPENDENCY HISTORY: Patient reports smoking one pack per day. She denies any alcohol use. She reports daily marijuana use. She denies any illicit drug use.. FAMILY PSYCHIATRIC/SUBSTANCE USE HISTORY: Unable to assess SOCIAL HISTORY: Patient was born and raised in [place]. She is currently living with her parents. MENTAL STATUS EXAM: General Appearance: Patient appears to be stated age is alert, pleasant, and cooperative. Patient appears to have fair hygiene and grooming wearing hospital gown with fair eye contact. Behavior: Patient is calmly lying in bed without any agitated behavior. Speech: Patient's speech is fluent and nonpressured. Mood/Affect: Patient reports their mood is "feeling fine", affect is congruent and euthymic. Affect appears bright. Suicidality/Homicidality: Patient vehemently denies any suicidal or homicidal ideation, intention, and/or plan. Perceptions: Patient denies any visual hallucinations and denies any auditory hallucinations Though content/process: There is no evidence of any delusional thought content and thought process is linear and goal-directed. Memory and concentration: AOX3, grossly intact for the purposes of this session. Can spell "WORLD" backwards Judgment and insight: Fair IMPRESSIONS: Major depressive disorder, recurrent, severe Posttraumatic stress disorder PLAN: -At this time patient DOES NOT meet criteria for inpatient psychiatric admission. Currently, the patient is not presenting with imminent risk of harm to self or others. She reports her last suicide attempt was greater than 5 years ago. She is currently open with the ACT team. Her acute suicidal thoughts are in the context of relationship stressors and appear resolved at this time. The patient is also able to agree to safety planning and denies any access to firearms or weapons. Her medications are managed by her ACT team since to limit her risk of overdose. -Would recommend the following medication changes/additions: There is some confusion as to what her home medications include as the patient believes that she is on a regimen of Pristiq and Seroquel whenever her current home medication list consists of trazodone, Abilify, Cogentin, gabapentin, and BuSpar. -The patient is recommended to follow up with her outpatient appointments with [facility] and their ACT team to address her medications. -Discontinue one-to-one sitter -Psychiatry will sign off at this point, please contact with any questions. 05/02/22 14:06
--- NOTE | 2022-05-02 14:21 | P.PN ---
Subjective Progress Note Date: 05/02/22 Hospital Course: The patient is a 45-year-old female with a past medical history of type II DM, hypertension, history of CVA (12/2021 with no residual deficits as per patient), asthma, chronic back pain, and depression. She was transferred from [facility] to our inpatient mental health unit for depression and suicidal ideations. While in our mental health unit undergoing treatment for her depression, patient reports that she suddenly developed chest discomfort, shortness of breath/difficulty catching her breath, and left-sided numbness, weakness, and tingling. Rapid Response team was activated and pt was evaluted at bedside resulting in immediate activation of code stroke. The patient's initial NIH score was 5. She underwent a CT brain which was negative for acute in tercranial process, CTA head and neck was also performed resulting negative for acute process. EKG revealed sinus rhythm with no reported T-wave or ST abnormalities. Chest x-ray negative. CBC, coags, and CMP unremarkable. Case was then reportedly discussed with neuro tying in machine operator supervisor electronics assembly Dr Levine who recommended no tPA. It was reported that just prior to experiencing the sudden onset chest discomfort, shortness of breath and left-sided numbness, tingling, and weakness; the patient reports that she received some very bad news that her fianc was breaking up with her. Patient states this bad news resulted in sudden onset of worsening anxiety shortly followed by above symptoms. Patient was transferred from psychiatric unit to medical unit for admission. Patient's symptoms resolved without intervention and she was monitored overnight and evaluated by neurology. It was determined that above symptoms less likely secondary to stroke or TIA and believed to be secondary to resulting from con version disorder or panic attack. Initial plan was to discharge back to psychiatric unit, however TSH and free T4 resulting with TSH 0.390. Free T4 of 0.74. 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 MRI brain and pituitary gland ordered. Patient was started on levothyroxine 50 g daily. Physical exam: Patient seen and examined at bedside. Vital signs reviewed and stable. General: Nontoxic, no distress and appears stated age. Derm: Skin warm and dry, normal coloration for ethnicity. Head: Atraumatic, normocephalic and symmetric. Eyes: EOMs intact, no lid lag, and anicteric sclera Mouth: no lip lesions, mucus membranes moist Cardiovascular: regular rate and rhythm with normal S1S2, no murmur, positive posterior tibial pulses bilaterally, and cap refill < 2 seconds. Lungs: Respirations even, regular, and unlabored on room air. Lungs CTA bilaterally, no rhonchi, no rales, no wheezing, and no accessory muscle usage. Abdominal: soft, nontender to palpation, no guarding, no appreciable organomegaly Ext: ROM intact. No gross muscle atrophy, no edema, no contractures Neuro: Speech clear, face symmetrical and CN II-XII grossly intact with no noted focal neuro deficits Psych: Alert and oriented to person, place, time, and situation. Flat affect. Assessment/plan Anxiety followed by chest pain, shortness of breath, and left upper and lower extremity numbness, tingling, and weakness believed to be secondary to conversion disorder or panic attack and less likely TIA -CT angiogram and CT brain unremarkable -Patient back to baseline, no neurological deficits noted. -Continue with aspirin, plavix, statin -Echocardiogram revealing normal EF between 50 and 55% with no reported valvular structural or abnormalities. -Cardiac monitoring -PT consult -Neurology following Hypothyroidism -TSH 0.390 and Free T4 of 0.74. 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 MRI brain and pituitary gland ordered. -Patient was started on levothyroxine 50 g daily. Depression with suicidal ideation -Psychiatry evaluated and patient clearing her for outpatient follow-up with [facility] stating patient does not meet criteria for inpatient psychiatric admission and is not presenting with imminent risk of harm to self or others. -Patient currently denying suicidal ideations. Chronic conditions: Type II DM, hypertension, asthma, depression -Insulin sliding scale and blood glucose monitoring -Continue home meds CODE STATUS: Full code DVT prophylaxis: Heparin Discussed with: Patient and RN Anticipated discharge date: Clinical course to determine Anticipated discharge place: Home A total of 39 minutes was spent on the care of this complex patient more than 50% of the time was spent in counseling and care coordination. Jj Jones NP rendered care for this patient independently, reviewed the findings and plan as documented in the note above. I did not physically speak with or examine the patient on this date. Objective - Vital Signs Vital signs: Vital Signs Temp 97.9 F 05/02/22 12:00 Pulse 60 05/02/22 12:00 Resp 14 06/23/22 12:00 BP 139/79 05/02/22 12:00 Pulse Ox 96 05/02/22 12:00 FiO2 Intake & Output 05/01/22 05/02/22 05/02/22 18:59 06:59 18:59 Intake Total 100 Balance 100 Weight 73.936 kg Intake: Oral 100 Other: # Voids 1 # Bowel Movements 1 - Labs CBC & Chem 7: 05/01/22 23:02 05/01/22 23:02 Labs: Abnormal Lab Results - Last 24 Hours (Table) 05/01/22 05/01/22 05/02/22 Range/Units 23:02 23:02 09:36 MCV 103.6 H (80.0-100.0) fL Sodium 135 L (137-145) mmol/L Glucose 105 H (74-99) mg/dL Total Bilirubin 0.1 L (0.2-1.3) mg/dL Total Protein 6.0 L (6.3-8.2) g/dL TSH 0.390 L (0.465-4.680) mIU/L Free T4 0.74 L (0.78-2.19) ng/dL
[2022-05-02] MEDS: LEVOTHYROXINE 50 MCG TAB PO SCH (15:15)
[2022-05-02 15:25] VITALS: BMI 25.5
[2022-05-02 17:21] LABS: Glucose,Whole Blood 110 mg/dL (70-110)
[2022-05-02] MEDS: QUEtiapine 25 MG TAB PO SCH (18:54)
[2022-05-02] MEDS: ONDANSETRON 4 MG/2 ML VIAL IVP PRN (19:49)
[2022-05-02] MEDS: NICOTINE 21MG/24HR PATCH TRANSDERM SCH (19:49)
[2022-05-02] MEDS: DESVENLAFAXINE SUCCINATE 50 MG TAB.ER.24H PO SCH (19:50)
[2022-05-02 20:19] LABS: Glucose,Whole Blood 145 mg/dL (70-110)
[2022-05-02] MEDS ORDERED: traZODone HCL 50 MG TAB PO SCH (21:00)
[2022-05-02] MEDS ORDERED: ACETAMINOPHEN TAB 325 MG TAB PO STA (21:20)
[2022-05-03] MEDS: HEPARIN SODIUM,PORCINE/PF 5,000 UNIT/0.5 ML SYRINGE SQ SCH ×2 (00:22→08:03)
[2022-05-03 06:01] LABS: Glucose,Whole Blood 141 mg/dL (70-110)
[2022-05-03] MEDS: INSULIN ASPART (NovoLOG) 100 UNIT/ML VIAL SQ SCH ×2 (06:07→11:55)
[2022-05-03] MEDS: LEVOTHYROXINE 50 MCG TAB PO SCH (06:08)
[2022-05-03] MEDS: ASPIRIN 325 MG TAB PO SCH (08:02)
[2022-05-03] MEDS: CLOPIDOGREL 75 MG TAB PO SCH (08:02)
[2022-05-03] MEDS: NICOTINE 21MG/24HR PATCH TRANSDERM SCH (08:02)
[2022-05-03] MEDS: ONDANSETRON 4 MG/2 ML VIAL IVP PRN (08:02)
[2022-05-03] MEDS: METOPROLOL SUCCINATE (ER) 25 MG TAB.ER.24H PO SCH (08:03)
[2022-05-03] MEDS: DESVENLAFAXINE SUCCINATE 50 MG TAB.ER.24H PO SCH (08:03)
[2022-05-03] MEDS: lisinopriL 10 MG TAB PO SCH (08:03)
[2022-05-03] MEDS: QUEtiapine 25 MG TAB PO SCH (08:03)
[2022-05-03 08:14] VITALS: RESP 16
--- NOTE | 2022-05-03 11:47 | P.PN ---
Subjective Progress Note Date: 05/03/22 The patient stated she is slightly better today compared to yesterday in regarding to her weakness on left side. According to nurse she continues to be inconsistent on neurological examination, that when she is being examined she is having difficulty lifting left side but when not examined is lifting left side drastically better. She had TSH 0.390 and free T4: 0.74 (both low) and possibly low because of pituitary issues. So Primary attempted to obtain MRI Pituitary and Brain but unable since she has loop recorder. Objective - Vital Signs Vital signs: Vital Signs Temp 98.1 F 05/03/22 08:12 Pulse 53 L 05/03/22 08:12 Resp 16 05/03/22 08:12 BP 147/84 05/03/22 08:12 Pulse Ox 98 05/03/22 08:12 FiO2 Intake & Output 05/02/22 05/03/22 05/03/22 18:59 06:59 18:59 Intake Total 118 5 Balance 118 5 Weight 73.936 kg Intake: IV 5 Invasive Line 1 5 Oral 118 Other: # Voids 1 - Exam GENERAL: The patient is lying in bed and is not in acute distress. NEUROLOGICAL: Higher mental function: The patient is awake, alert, oriented to self, place and time. Patient is following commands. No aphasia and no neglect. Cranial nerves: The pupils are round, equal and reactive to light and accommodation. Visual nobles are full to confrontation throughout. Extraocular movement is intact no nystagmus is noted. Facial sensation is normal to touch throughout. The facial strength is normal throughout. Tongue is midline and moved [id number] without any difficulty. No dysarthria is noted. Shoulder shrug is normal bilaterally. Motor: The strength is patient has inconsistent strength on left side. Claritza salmeron is having difficulty lifting left side but with motivation she is able to do so. Right side is normal. Normal tone and bulk. Cerebellum: Normal finger to nose heel to connors bilaterally. Sensation: States left side is decreased to touch. Reflexes (right/left): 2+ throughout. Plantars are downgoing bilaterally. SOME OF THE WORK-UP: CT of the head as well as CT angiography of the head and neck which is reported as negative. I personally reviewed the CT of the head and I agree there is no acute subacute ischemia and there is no intraparenchymal hemorrhage. I reviewed her labs. Also of note the CT angiography is reported as there is noted osteotomy of the occipital bone C1 vertebral. There is a oblique fracture which appears chronic to the anterior arch of C1 which could be due to the stabilization from the surgery TSH 0.390 and free T4: 0.74 (both low) and possibly low because of pituitary issues. 2-D echo was reported as normal left ventricular size and systolic function. The left atrium is normal size. - Labs CBC & Chem 7: 05/01/22 23:02 05/01/22 23:02 Labs: Abnormal Lab Results - Last 24 Hours (Table) 05/02/22 05/02/22 05/03/22 Range/Units 09:36 20:17 06:00 POC Glucose (mg/dL) 145 H 141 H (70-110) mg/dL Free T4 0.74 L (0.78-2.19) ng/dL Assessment and Plan Assessment: * Acute left-sided weakness and paresthesia (exam inconsistent and improves with motivation). Does not seem like stroke and her symptoms seems more functional likely due to underlying psychiatric issues (depression, suicidal ideation. Her boyfriend is breaking up with her). Seems more conversion. CT head and CTA are unremarkable. * d TSH 0.390 and free T4: 0.74 (both low) and possibly abnormal because of pituitary issues. * Acute suicidal ideation with depression * Reported history of stroke without residual deficits in fabric 2021 according to the patient. Had left sided weakness that resolved * Diabetes mellitus type 2 * Hypertension * Asthma * Tobacco use Plan: She is currently on aspirin 325mg daily and Plavix 75 mg daily her home medications. Recommend to follow-up with her neurologist of modification of antiplatelets. Recommend decreasing Lipitor from 80 to 40 daily at bedtime. PT OT and DIRECTOR DERMATOLOGY are consulted Psychiatry team is consulted d TSH 0.390 and free T4: 0.74 (both low) and possibly low because of pituitary issues. So Primary attempted to obtain MRI Pituitary and Brain but unable since she has loop recorder. Recommend MRI Brain and Pituitary as outpatient. Patient is counseled on tobacco cessation. For DVT prophylaxis the patient is on subcu heparin 5000 units every 8 hours. Recommend the patient to follow-up with a neurologist (Dr. Yung) as well as psychiatrist as an outpatient. The plan is discussed with patient and primary team. No additional testing is needed and patient is clear for discharge. Casimiro Smith M.D. Neuro-hospitalist Time with Patient: Less than 30
[2022-05-03 11:50] LABS: Glucose,Whole Blood 113 mg/dL (70-110)
[2022-05-03 12:07] VITALS: BP 116/68; PULSE 80; TEMP 97.7
--- NOTE | 2022-05-03 15:18 | P.DS ---
Providers Date of admission: 05/01/22 21:37 Expected date of discharge: 05/03/22 Attending physician: Joel Lara MD Consults: 05/01/22 21:58 Consult Physician Stat Consulting Provider: Psychiatry - [facility] Psychiatry Consult Reason/Comments: depression, suicidal ideation Do you want consulting provider notified?: Yes, Notify in am 05/02/22 00:41 Consult Physician Urgent Consulting Provider: Casimiro Smith Consult Reason/Comments: TIA/CVA Do you want consulting provider notified?: Yes Primary care physician: Stated None Hospital Course: Discharge Diagnosis: Anxiety followed by chest pain, shortness of breath, and left upper and lower extremity numbness, tingling, and weakness believed to be secondary to conversion disorder or panic attack and less likely TIA Hypothyroidism. TSH 0.390 and Free T4 of 0.74. 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 MRI brain and pituitary gland ordered, but was unable to be completed at our facility secondary to inability to obtain records on patient's previously placed loop recorder and stent. Patient instructed she will need to obtain these results from her neurologist/bundling machine operator and follow-up with neurology/endocrinology for highly recommended MRI of brain and pituitary gland. Patient verbalized understanding. Patient was started on levothyroxine 50 g daily and thyroid levels and continued medication management to be managed by PCP/rn shift mgr. Depression with suicidal ideation, Psychiatry evaluated and made medication changes. Patient placed on Seroquel and Pristiq and has been cleared for outpatient follow-up with [facility] stating patient does not meet criteria for inpatient psychiatric admission and is not presenting with imminent risk of harm to self or others. Patient currently denying suicidal ideations. Hypertension. Monitor vital signs and continue daily medication regimen with lisinopril and metoprolol. Type 2 diabetes mellitus. Continue daily medication regimen with guardians, Januvia, and metformin. History of CVA, continue daily medication regimen with Plavix and rosuvastatin. Asthma Hospital Course: The patient is a 45-year-old female with a past medical history of type II DM, hypertension, history of CVA (12/2021 with no residual deficits as per patient), asthma, chronic back pain, and depression. She was transferred from [facility] to our inpatient mental health unit for depression and suicidal ideations. While in our mental health unit undergoing treatment for her depression, patient reports that she suddenly developed chest discomfort, shortness of breath/difficulty catching her breath, and left-sided numbness, weakness, and tingling. Rapid Response team was activated and pt was evaluted at bedside resulting in immediate activation of code stroke. The patient's initial NIH score was 5. She underwent a CT brain which was negative for acute intercranial process, CTA head and neck was also performed resulting negative for acute process. EKG revealed sinus rhythm with no reported T-wave or ST abnormalities. Chest x-ray negative. CBC, coags, and CMP unremarkable. Case was then reportedly discussed with neuro worksite wellness practitioner inspector assemblies and installations Dr Levine who recommended no tPA. It was reported that just prior to experiencing the sudden onset chest discomfort, shortness of breath and left-sided numbness, tingling, and weakness; the patient reports that she received some very bad news that her fianc was breaking up with her. Patient states this bad news resulted in sudden onset of worsening anxiety shortly followed by above symptoms. Patient was transferred from psychiatric unit to medical unit for admission. Patient's symptoms resolved without intervention and she was monitored overnight and evaluated by neurology. It was determined that above symptoms less likely secondary to stroke or TIA and believed to be secondary to resulting from conversion disorder or panic attack. Initial plan was to discharge back to psychiatric unit, however TSH and free T4 resulting with TSH 0.390. Free T4 of 0.74. 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 MRI brain and pituitary gland ordered. Patient was started on levothyroxine 50 g daily. Patient was unable to undergo MRI of brain and pituitary gland here as she has a loop recorder and stent. Patient was unclear of where she had procedures completed whether it was [facility] or [facility] and attempts were made at obtaining records were unsuccessful. Patient states her neurologist has this information, Dr. Dillon Hudson. Patient cleared for discharge at this time, patient to follow up outpatient with her neurologist and rn shift mgr as discussed in a highly recommend obtaining reports and undergoing an MRI of brain and pituitary gland to rule out pituitary gland tumor or other issues. Patient verbalized understanding. She reports feeling much better since getting her medications straightened out and denies having any suicidal thoughts or ideations. Patient is medically stable at this time. She denies having any complaints and has no noted weakness upon assessment. Physical exam: Patient seen and examined at bedside. Patient's overall affect much improved w hen compared to yesterday. Patient reports that she feels much better since her medications have been straightened out. She denies having any suicidal or homicidal ideations. She is currently not exhibiting any left-sided weakness and reports overall feeling much better. Vital signs reviewed and stable. General: Nontoxic, no distress and appears stated age. Derm: Skin warm and dry, normal coloration for ethnicity. Head: Atraumatic, normocephalic and symmetric. Eyes: EOMs intact, no lid lag, and anicteric sclera Mouth: no lip lesions, mucus membranes moist Cardiovascular: regular rate and rhythm with normal S1S2, no murmur, positive posterior tibial pulses bilaterally, and cap refill < 2 seconds. Lungs: Respirations even, regular, and unlabored on room air. Lungs CTA bilaterally, no rhonchi, no rales, no wheezing, and no accessory muscle usage. Abdominal: soft, nontender to palpation, no guarding, no appreciable organomegaly Ext: ROM intact. No gross muscle atrophy, no edema, no contractures Neuro: Speech clear, face symmetrical and CN II-XII grossly intact with no noted focal neuro deficits Psych: Alert and oriented to person, place, time, and situation. Appropriate affect. A total of 41 minutes minutes of time were spent preparing this complex discharge summary. Pt was discharged on 05/03/22 at 10:58 AM. Patient Condition at Discharge: Stable Plan - Discharge Summary New Discharge Prescriptions: New Levothyroxine Sodium [Synthroid] 50 mcg PO DAILY@0630 30 Days #30 tab Continue Sucralfate [Carafate] 1 gm PO BID Oxybutynin Chloride [Ditropan XL] 10 mg PO DAILY Rosuvastatin Calcium [Crestor] 40 mg PO DAILY Desvenlafaxine Succinate [Pristiq] See Taper PO DAILY metFORMIN HCL [Glucophage] 1,000 mg PO BID Ondansetron Odt [Zofran ODT] 8 mg PO Q8HR PRN PRN Reason: Nausea sitaGLIPtin [Januvia] 100 mg PO DAILY lisinopriL [Zestril] 10 mg PO DAILY Ranolazine [Ranexa] 500 mg PO BID Metoprolol Succinate [Metoprolol Succinate ER] 25 mg PO DAILY Clopidogrel [Plavix] 75 mg PO DAILY QUEtiapine [SEROquel] See Taper PO DAILY Empagliflozin [Jardiance] 25 mg PO DAILY Discontinued Methylphenidate HCl 5 mg PO TID armodafiniL [Armodafinil] 250 mg PO DAILY Morphine Sulfate [Morphine Sulfate ER] 30 mg PO Q12HR PRN PRN Reason: Pain HYDROcodone/APAP 10-325MG [Scribner 10-325] 1 tab PO BID PRN PRN Reason: Pain Levothyroxine Sodium [Synthroid] 25 mcg PO DAILY Discharge Medication List Clopidogrel [Plavix] 75 mg PO DAILY 05/01/22 [History] Metoprolol Succinate [Metoprolol Succinate ER] 25 mg PO DAILY 05/01/22 [History] Oxybutynin Chloride [Ditropan XL] 10 mg PO DAILY 05/01/22 [History] Ranolazine [Ranexa] 500 mg PO BID 05/01/22 [History] Sucralfate [Carafate] 1 gm PO BID 05/01/22 [History] lisinopriL [Zestril] 10 mg PO DAILY 05/01/22 [History] sitaGLIPtin [Januvia] 100 mg PO DAILY 05/01/22 [History] Desvenlafaxine Succinate [Pristiq] See Taper PO DAILY 05/02/22 [History] Empagliflozin [Jardiance] 25 mg PO DAILY 05/02/22 [History] Levothyroxine Sodium [Synthroid] 50 mcg PO DAILY@0630 30 Days #30 tab 05/02/22 [Rx] Ondansetron Odt [Zofran ODT] 8 mg PO Q8HR PRN 05/02/22 [History] QUEtiapine [SEROquel] See Taper PO DAILY 05/02/22 [History] Rosuvastatin Calcium [Crestor] 40 mg PO DAILY 05/02/22 [History] metFORMIN HCL [Glucophage] 1,000 mg PO BID 05/02/22 [History] Follow up Appointment(s)/Referral(s): Rhonda Olivo MD [STAFF PHYSICIAN] - 1 Week Bhavna Watson DO [REFERRING] - 1 Week (Please follow up with your PCP for a post hospital follow up appointment.) Claudy Yung DO [REFERRING] - 1 Week (Please follow up with your neurologist for a post hospital follow up appoiintment.) Activity/Diet/Wound Care/Special Instructions: Activity: As tolerated. Take breaks as needed. Diet: Heart healthy and carb consistent diet. Avoid salts, or foods with hidden salts such as canned or boxed foods and frozen dinners. Extra salt makes your heart work harder and traps the fluid in your body for longer. Special Instructions: Take all of your medications as directed and remember to keep all of your doctor's appointments and follow-up as needed. You have been started on Synthroid secondary to a low TSH and low free T4 indicating hypothyroidism. You will need to follow up outpatient with your rn shift mgr Dr. Olivo and your neurologist Dr. Dillon Hudson as we discussed as you will need an MRI of your brain and pituitary gland once you obtain records of your loop recorder and stent previously placed. Low TSH and low free T4 are concerning for central hypothyroidism and this needs to be further evaluated for possible underlying concerns as we discussed prior to your discharge. Please do not wait to get this completed. It is also imperative to stop taking methylphenidate and armodafinil as we discussed as these medications are contraindicated when using levothyroxine/Synthroid. Please follow up with [facility] as scheduled. Thank you for allowing us to participate in your care, it was truly a pleasure having you for our patient!!! Discharge Disposition: HOME SELF-CARE
== END 2022-05-03 13:44 | disposition home or self-care (01) | DRG 880 ==
LOC: 3SCARD 21:37
PROVIDERS: ADMIT Internal Medicine; ATTEND Internal Medicine
DX: F41.0 Panic disorder [episodic paroxysmal anxiety] (principal); D68.9 Coagulation defect, unspecified; R45.851 Suicidal ideations; F31.9 Bipolar disorder, unspecified; E11.9 Type 2 diabetes mellitus without complications; J44.9 Chronic obstructive pulmonary disease, unspecified; F44.9 Dissociative and conversion disorder, unspecified; F43.10 Post-traumatic stress disorder, unspecified; E03.9 Hypothyroidism, unspecified; I25.10 Atherosclerotic heart disease of native coronary artery without angina pectoris; I10 Essential (primary) hypertension; E78.5 Hyperlipidemia, unspecified; G47.30 Sleep apnea, unspecified; Z95.5 Presence of coronary angioplasty implant and graft; Z88.8 Allergy status to other drugs, medicaments and biological substances; Z91.040 Latex allergy status; Z79.02 Long term (current) use of antithrombotics/antiplatelets; Z79.84 Long term (current) use of oral hypoglycemic drugs; Z79.890 Hormone replacement therapy; Z79.899 Other long term (current) drug therapy; Z86.73 Personal history of transient ischemic attack (TIA), and cerebral infarction without residual deficits; Z87.798 Personal history of other (corrected) congenital malformations; Z79.82 Long term (current) use of aspirin; I34.0 Nonrheumatic mitral (valve) insufficiency
CPT/HCPCS: 80053; 84439; 84443; 84484; 85025; 85610; 85730; 93306

== ENCOUNTER 2022-08-17 15:44 | Inpatient (IN) | payer MEDICARE, MEDICAID ==
[2022-08-17] MEDS ORDERED: HALOPERIDOL LACTATE 5 MG/ML 1 ML VIAL IM PRN (17:29)
[2022-08-17] MEDS ORDERED: MAGNESIUM HYDROXIDE 2,400 MG/10 ML CUP PO PRN (17:29)
[2022-08-17] MEDS ORDERED: MAG HYDROX/AL HYDROX/SIMETH 30 ML CUP PO PRN (17:29)
[2022-08-17] MEDS ORDERED: LORazepam 2 MG/ML INJ IM PRN (17:33)
[2022-08-17] MEDS ORDERED: haloperidoL 5 MG TAB PO PRN (17:34)
[2022-08-17] MEDS: RANOLAZINE 500 MG TAB.ER.12H PO SCH (20:49)
[2022-08-17] MEDS: SUCRALFATE 1 GM TAB PO SCH (20:49)
[2022-08-17] MEDS: LORazepam 1 MG TAB PO PRN (20:50)
[2022-08-17] MEDS: ACETAMINOPHEN TAB 325 MG TAB PO PRN (20:52)
[2022-08-17] MEDS: metFORMIN 500 MG TAB PO SCH (20:54)
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
[2022-08-18] MEDS: LEVOTHYROXINE 50 MCG TAB PO SCH (06:11)
[2022-08-18] MEDS: METOPROLOL SUCCINATE (ER) 25 MG TAB.ER.24H PO SCH (08:48)
[2022-08-18] MEDS: metFORMIN 500 MG TAB PO SCH ×2 (08:49→20:17)
[2022-08-18] MEDS: OXYBUTYNIN 10 MG TAB.ER.24 PO SCH (08:50)
[2022-08-18] MEDS: NICOTINE 14MG/24HR PATCH TRANSDERM SCH (08:50)
[2022-08-18] MEDS: ATORVASTATIN 80 MG TAB PO SCH (08:51)
[2022-08-18] MEDS: RANOLAZINE 500 MG TAB.ER.12H PO SCH ×2 (08:51→20:17)
[2022-08-18] MEDS: lisinopriL 10 MG TAB PO SCH (08:51)
[2022-08-18] MEDS: LINAGLIPTIN 5 MG TABLET PO SCH (08:51)
[2022-08-18] MEDS: SUCRALFATE 1 GM TAB PO SCH ×2 (08:51→20:17)
[2022-08-18] MEDS: DAPAGLIFLOZIN PROPANEDIOL 10 MG TABLET PO SCH (08:51)
[2022-08-18] MEDS: CLOPIDOGREL 75 MG TAB PO SCH (08:51)
[2022-08-18 09:12] LABS: Glucose,Whole Blood 147 mg/dL (70-110)
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
[2022-08-18] MEDS ORDERED: hydrOXYzine HCL 25 MG TAB PO PRN (11:06)
[2022-08-18 11:35] LABS: Chol/HDL Ratio 4.26 Ratio; LDL Cholesterol,Calculated 136.1 mg/dL (0.0-131.0)
[2022-08-18 12:40] LABS: Glucose,Whole Blood 90 mg/dL (70-110)
[2022-08-18] MEDS: ACETAMINOPHEN TAB 325 MG TAB PO PRN ×2 (12:42→17:35)
[2022-08-18] MEDS: LORazepam 1 MG TAB PO PRN ×2 (12:42→20:18)
[2022-08-18] MEDS ORDERED: LORazepam 1 MG/0.5 ML VIAL IM PRN (14:22)
[2022-08-18 15:11] LABS: Glucose,Whole Blood 98 mg/dL (70-110)
--- NOTE | 2022-08-18 16:23 | CT ---
EXAMINATION TYPE: CT brain wo con DATE OF EXAM: 08/18/2022 COMPARISON: 05/01/2022 HISTORY: Pt felt lighheaded, had headache and then fell. CT DLP: 1116 mGycm Automated exposure control for dose reduction was used. Images obtained of the brain with no contrast. Ventricles have normal size. There is no mass effect or midline shift. No sign of intracranial hemorr yamil. There is hypodensity in the inferior left cerebellar hemisphere that is measuring 2 x 1.5 cm an d consistent with encephalomalacia. There is occipital craniotomy defect. There is normal aeration of the mastoid sinuses. There is defect in the anterior arch of C1 vertebra which is probably developmental. IMPRESSION: There is some encephalomalacia inferior left cerebellar hemisphere without change. Previous surgery. No acute intracranial abnormality.
--- NOTE | 2022-08-18 16:57 | CT ---
EXAMINATION TYPE: CODE STROKE: CTA head neck DATE OF EXAM: 08/18/2022 COMPARISON: None HISTORY: Pt felt lighheaded, had headache and then fell. n Hx TIA CT DLP: 232.70 mGycm Automated exposure control for dose reduction was used. CONTRAST: Performed with IV Contrast, patient injected with 65 mL of Isovue 370. Images obtained from the aortic arch to the vertex of the brain with the IV contrast. There are Three -D postprocessed images. There is normal branching pattern of the great vessels on the aortic arch. There is bilateral arteria l flow in the subclavian arteries. There is arterial flow in the common internal and external carotid arteries bilaterally. There is arterial flow in both vertebral arteries. No evidence of carotid or v ertebral artery aneurysm or dissection. There is arterial flow in the vertebral basilar artery system . There is wide patency of the carotid artery bifurcations. There is arterial flow in the anterior middle and posterior cerebral arteries bilaterally. No mass ef fect. No evidence of intracranial aneurysm or neovascularity. There is occipital craniotomy defect. There is hypodensity inferior left cerebellar hemisphere consis tent with encephalomalacia. There is normal enhancement of the venous sinuses. IMPRESSION: Negative CT angiogram of the neck. Negative CT angiogram of the brain.
[2022-08-18 17:55] LABS: Glucose,Whole Blood 97 mg/dL (70-110)
[2022-08-18 20:11] LABS: Glucose,Whole Blood 139 mg/dL (70-110)
[2022-08-18] MEDS: DIVALPROEX 250 MG TABLET.DR PO SCH (20:17)
[2022-08-19 07:09] VITALS: TEMP 97.5
[2022-08-19 08:14] LABS: Glucose,Whole Blood 105 mg/dL (70-110)
[2022-08-19] MEDS: LEVOTHYROXINE 50 MCG TAB PO SCH (09:59)
[2022-08-19] MEDS: NICOTINE 14MG/24HR PATCH TRANSDERM SCH (09:59)
[2022-08-19] MEDS: SUCRALFATE 1 GM TAB PO SCH ×2 (10:00→20:48)
[2022-08-19] MEDS: ATORVASTATIN 80 MG TAB PO SCH (10:00)
[2022-08-19] MEDS: RANOLAZINE 500 MG TAB.ER.12H PO SCH ×2 (10:01→20:48)
[2022-08-19] MEDS: OXYBUTYNIN 10 MG TAB.ER.24 PO SCH (10:02)
[2022-08-19] MEDS: lisinopriL 10 MG TAB PO SCH (10:02)
[2022-08-19] MEDS: CLOPIDOGREL 75 MG TAB PO SCH (10:03)
[2022-08-19] MEDS: LORazepam 1 MG TAB PO PRN ×2 (10:06→17:49)
[2022-08-19] MEDS: LINAGLIPTIN 5 MG TABLET PO SCH (10:09)
[2022-08-19] MEDS: DAPAGLIFLOZIN PROPANEDIOL 10 MG TABLET PO SCH (10:09)
[2022-08-19] MEDS: DIVALPROEX 250 MG TABLET.DR PO SCH (10:10)
[2022-08-19] MEDS: metFORMIN 500 MG TAB PO SCH ×2 (10:10→20:47)
[2022-08-19] MEDS: METOPROLOL SUCCINATE (ER) 25 MG TAB.ER.24H PO SCH (10:10)
[2022-08-19] MEDS: ONDANSETRON ODT 8 MG TAB.RAPDIS PO PRN (10:32)
[2022-08-19 12:53] LABS: Glucose,Whole Blood 110 mg/dL (70-110)
[2022-08-19] MEDS: DESVENLAFAXINE SUCCINATE 50 MG TAB.ER.24H PO SCH (15:34)
[2022-08-19 17:44] LABS: Glucose,Whole Blood 114 mg/dL (70-110)
[2022-08-19] MEDS: ACETAMINOPHEN TAB 325 MG TAB PO PRN (18:52)
[2022-08-19 20:11] LABS: Glucose,Whole Blood 133 mg/dL (70-110)
[2022-08-19] MEDS ORDERED: QUEtiapine 50 MG TAB PO PRN (21:00)
[2022-08-19] MEDS ORDERED: QUEtiapine 50 MG TAB PO SCH (21:00)
[2022-08-20 07:11] VITALS: BP 106/60; PULSE 62; RESP 17
[2022-08-20] MEDS: LEVOTHYROXINE 50 MCG TAB PO SCH (07:21)
[2022-08-20 08:12] LABS: Glucose,Whole Blood 105 mg/dL (70-110)
[2022-08-20] MEDS: DESVENLAFAXINE SUCCINATE 50 MG TAB.ER.24H PO SCH (08:13)
[2022-08-20] MEDS: NICOTINE 14MG/24HR PATCH TRANSDERM SCH (08:13)
[2022-08-20] MEDS: lisinopriL 10 MG TAB PO SCH (08:14)
[2022-08-20] MEDS: LINAGLIPTIN 5 MG TABLET PO SCH (08:14)
[2022-08-20] MEDS: RANOLAZINE 500 MG TAB.ER.12H PO SCH (08:14)
[2022-08-20] MEDS: DAPAGLIFLOZIN PROPANEDIOL 10 MG TABLET PO SCH (08:14)
[2022-08-20] MEDS: metFORMIN 500 MG TAB PO SCH (08:14)
[2022-08-20] MEDS: OXYBUTYNIN 10 MG TAB.ER.24 PO SCH (08:14)
[2022-08-20] MEDS: CLOPIDOGREL 75 MG TAB PO SCH (08:14)
[2022-08-20] MEDS: ATORVASTATIN 80 MG TAB PO SCH (08:15)
[2022-08-20] MEDS: SUCRALFATE 1 GM TAB PO SCH (08:15)
[2022-08-20] MEDS: LORazepam 1 MG TAB PO PRN (08:17)
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
[2022-08-20] MEDS: ONDANSETRON ODT 8 MG TAB.RAPDIS PO PRN (12:50)
[2022-08-20 12:57] LABS: Glucose,Whole Blood 93 mg/dL (70-110)
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
== END 2022-08-20 14:23 | disposition home or self-care (01) | DRG 885 ==
LOC: 3MHU 18:53
PROVIDERS: ADMIT Psychiatry & Neurology Psychiatry; ATTEND Psychiatry & Neurology Psychiatry
DX: F31.9 Bipolar disorder, unspecified (principal); F43.23 Adjustment disorder with mixed anxiety and depressed mood; E03.9 Hypothyroidism, unspecified; E11.9 Type 2 diabetes mellitus without complications; E78.5 Hyperlipidemia, unspecified; F12.90 Cannabis use, unspecified, uncomplicated; F17.200 Nicotine dependence, unspecified, uncomplicated; F43.10 Post-traumatic stress disorder, unspecified; G47.00 Insomnia, unspecified; G89.29 Other chronic pain; G93.89 Other specified disorders of brain; I10 Essential (primary) hypertension; I25.10 Atherosclerotic heart disease of native coronary artery without angina pectoris; J44.9 Chronic obstructive pulmonary disease, unspecified; Z79.02 Long term (current) use of antithrombotics/antiplatelets; Z79.84 Long term (current) use of oral hypoglycemic drugs; Z79.890 Hormone replacement therapy; Z79.891 Long term (current) use of opiate analgesic; Z79.899 Other long term (current) drug therapy; Z86.73 Personal history of transient ischemic attack (TIA), and cerebral infarction without residual deficits; Z91.14 Patient's other noncompliance with medication regimen
CPT/HCPCS: 70450; 70496; 70498; 80061; 83036; 84443; 84484; 93005